=== PATIENT | female | born 1950 | race Caucasian/White ===

== ENCOUNTER 2017-10-24 14:04 | Emergency (ER) | payer MEDICARE, OTHER ==
[2015-12-14 15:06] VITALS: Ht 165.1 cm; Wt 72.1 kg
[~2017-10-24] VITALS: Ht 165.1 cm; Wt 72.1 kg
[~2017-10-24 14:04] MED LIST: ACET-2043 PO; AMLO2.5T74 PO; AMOX-559 PO; ATOR20TA65 PO; AVONEX SQ; CALC-18 PO; CEPH-13 PO; CHLO4TAB PO; CHOL200021 PO; CINN1CAP PO; DIPH0.5D12 IM; DOCU100C49 PO; DYA PO; FAMO10TA PO; FISH1200 PO; GABA-549 PO; GINK60TA6 PO; HAWT150C PO; HYDR-2966 PO; HYDR-385 PO; INTE30KI IM; LOR5/325 PO; MAGN100T2 PO; METH-284 PO; METH5TAB87 PO; METXR500 PO; MILK175C PO; MULT1TAB64 PO; OMEP-218 PO; PHEN-460 PO; PNEI IJ; PNEU0.5D3 IM; SELE50TA16 PO; SULF-198 PO; THYROID ACTIVATOR PO; THYROID PO; TRIA1CAP81 PO; VITA-324 PO; VITA1CAP46 PO; VITA200C8 PO; ZINC30CA2 PO; ZINC50TA43 PO; [UNRECOGNIZED DRUG - CODE] PO; [UNRECOGNIZED DRUG - CODE] PO; [UNRECOGNIZED DRUG - CODE] PO
[2017-10-24 14:10] VITALS: BP 155/66
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
--- NOTE | 2017-10-24 14:59 | RADIOLOGY IMAGING REPORT ---
FACILITY: [facility] PATIENT NAME: Jennifer Merrill : 1950 MR: [id number] V: [id number] EXAM DATE: ORDERING PHYSICIAN: TRAV VICTORIA TECHNOLOGIST: Location: [facility] [place] Patient: Jennifer Merrill : 1950 Visit/Account:[id number] Date of Sevice: 10/24/2017 Exam type: SACRUM COCCYX History: Fell on ice, tried to catch herself with left wrist, tailbone pain Comparison: None. Findings: No definite fracture seen involving the sacrum or coccyx. SI joints appear symmetric bilaterally IMPRESSION: 1. No evidence of fracture involving the sacrum or coccyx Report Dictated By: Mable Rossi MD at 10/24/2017 2:53 PM Report E-Signed By: Mable Rossi MD at 10/24/2017 2:54 PM WSN:[email or web address]
--- NOTE | 2017-10-24 15:01 | RADIOLOGY IMAGING REPORT ---
FACILITY: [facility] [place] PATIENT NAME: Jennifer Merrill : 1950 MR: [id number] V: [id number] EXAM DATE: ORDERING PHYSICIAN: TRAV VICTORIA TECHNOLOGIST: Location: [facility] [place] Patient: Jennifer Merrill : 1950 Visit/Account:[id number] Date of Sevice: 10/24/2017 Exam type: LUMBAR SPINE 4 VIEWS History: fall with pain Comparison: None. Findings: There are five nonrib-bearing lumbar-type vertebral bodies present. There is no evidence of acute fr actures or subluxations. There is mild disc space narrowing at L2-3 mild to moderate disc space narr owing L3-4, L5-S1 and moderate disc space narrowing L4-5. There are mild degenerative facet joint ch anges seen throughout the lumbar spine and moderate degenerative facet joint changes at L5-S1. IMPRESSION: 1. Multilevel spondylotic changes lumbar spine most prominent at L4-5 and L5-S1 No evidence of acute fractures or subluxations Report Dictated By: Mable Rossi MD at 10/24/2017 2:54 PM Report E-Signed By: Mable Rossi MD at 10/24/2017 2:57 PM WSN:[email or web address]
--- NOTE | 2017-10-24 15:04 | RADIOLOGY IMAGING REPORT ---
FACILITY: [facility] [place] PATIENT NAME: Jennifer Merrill : 1950 MR: [id number] V: [id number] EXAM DATE: ORDERING PHYSICIAN: TRAV VICTORIA TECHNOLOGIST: Location: [facility] Patient: Jennifer Merrill : 1950 Visit/Account:[id number] Date of Sevice: 10/24/2017 Exam type: WRIST LEFT MIN 3 VIEW History: fall with pain Comparison: None. Findings: There is no evidence of acute fracture dislocation involving the left wrist. A navicular view was no t performed and if a navicular fracture is of clinical concern and additional views recommended. The re are mild degenerative changes at the left radiocarpal joint IMPRESSION: 1. Mild generative changes at the left radiocarpal joint No evidence of acute fracture dislocation however a navicular view was not performed and if a navicul ar fracture is of clinical concern a navicular view is recommended Report Dictated By: Mable Rossi MD at 10/24/2017 2:57 PM Report E-Signed By: Mable Rossi MD at 10/24/2017 2:59 PM WSN:GIO
[2017-10-24] MEDS ORDERED: KET10 PO (15:42)
== END 2017-10-24 15:44 | disposition home or self-care (01) ==
LOC: ER 14:29
DX: S63.502A Unspecified sprain of left wrist, initial encounter (principal); S30.0XXA Contusion of lower back and pelvis, initial encounter; M54.5 Low back pain; W00.0XXA Fall on same level due to ice and snow, initial encounter
CPT/HCPCS: 72120; 72220; 73110; 99283; L3763

== ENCOUNTER → 2017-11-13 | Outpatient (CLI) | payer MEDICARE, OTHER ==
[2015-12-14 15:06] VITALS: BMI 29.9
[~2017-11-13] MED LIST changes: +KET10 PO
[2017-11-13 10:55] LABS: LDL CHOLESTEROL 43 mg/dl
--- NOTE | 2017-11-13 14:39 | RADIOLOGY IMAGING REPORT ---
FACILITY: [facility] [place] PATIENT NAME: Jennifer Merrill : 1950 MR: [id number] V: [id number] EXAM DATE: ORDERING PHYSICIAN: LAURA REYES TECHNOLOGIST: Location: [facility] Patient: Jennifer Merrill : 1950 Visit/Account:[id number] Date of Sevice: 11/13/2017 THYROID HISTORY: thyroid nodule COMPARISON: March 12, 2017 FINDINGS: SIZE: Right lobe: Surgically removed cm Left lobe: 4.6 x 2 x 2.1 cm Isthmus: 2 mm PARENCHYMA: Homogeneous. NODULES: Right lobe: * None discrete. Left lobe: * In the medial left lobe adjacent to the isthmus there is a 1.4 x 0.5 cm slightly heterogeneous nod ule appears relatively unchanged in size. This has been previously biopsied. The other subcentimete r nodules in the left lobe are again noted. Isthmus: * None discrete. VASCULARITY: Within normal limits. ADDITIONAL FINDINGS: None. IMPRESSION: Left-sided thyroid nodules appear relatively unchanged. The largest measures 1.4 centers in diameter and has apparently been previously biopsied. REFERENCE: 2015 [place] [employer] Management Guidelines for Adult Patients with Thyroid Nodules and D ifferentiated Thyroid Cancer: The [place] [employer] Guidelines Task Force on Thyroid Nodul es and Differentiated Thyroid Cancer. SONOGRAPHIC PATTERNS: * Benign: Purely cystic nodules (no solid component); estimated risk of malignancy <1 percent; no bi opsy recommended. * Very Low Suspicion: Spongiform or partially cystic nodules without any of the sonographic features described in low, intermediate, or high suspicion patterns; estimated risk of malignancy <3 percent; consider FNA at > 2 cm (Observation without FNA is also a reasonable option). * Low Suspicion: Isoechoic or hyperechoic solid nodule, or partially cystic nodule with eccentric so lid areas, without microcalcification, irregular margin or ETE (extra-thyroidal extension), or taller than wide shape; estimated risk of malignancy 5-10 percent; recommend FNA at >1.5 cm. * Intermediate Suspicion: Hypoechoic solid nodule with smooth margins without microcalcifications, E TE (extra-thyroidal extension), or taller than wide shape; estimated risk of malignancy 10-20 percent ; recommend FNA at > 1 cm. * High Suspicion: Solid hypoechoic nodule or solid hypoechoic component of a partially cystic nodule with one or more of the following features: irregular margins (infiltrative, microlobulated), microc alcifications, taller than wide shape, rim calcifications with small extrusive soft tissue component, evidence of ETE (extra-thyroidal extension); estimated risk of malignancy >70-90 percent; recommend FNA at > 1 cm. NOTES: * Although a sonographically suspicious subcentimeter thyroid nodule without evidence of extrathyroi kaylynn extension or sonographically suspicious lymph nodes may be observed with close sonographic follow -up rather than pursuing immediate FNA, patient age and preference may modify decision-making. A > 50% interval increase in nodule volume and/or development of new suspicious sonographic features are felt to be a valid reasons for potential re-aspiration of a nodule previously shown to have benig n FNA cytology. Report Dictated By: Mable Rossi MD at 11/13/2017 2:29 PM Report E-Signed By: Mable Rossi MD at 11/13/2017 2:35 PM WSN:[email or web address]
== END ==
LOC: US 00:21
PROVIDERS: ATTEND Nurse Practitioner Family
DX: E78.5 Hyperlipidemia, unspecified (principal); E04.1 Nontoxic single thyroid nodule
CPT/HCPCS: 76536; 82040; 82247; 82310; 82374; 82435; 82465; 82565; 82947; 83718; 84075; 84132; 84155; 84295; 84450; 84460; 84478; 84520

== ENCOUNTER → 2017-11-13 | Outpatient (CLI) | payer MEDICARE, OTHER ==
[2015-12-14 15:06] VITALS: BMI 29.9
== END ==
LOC: LAB 10:23
PROVIDERS: ATTEND Internal Medicine Endocrinology, Diabetes & Metabolism
DX: E05.00 Thyrotoxicosis with diffuse goiter without thyrotoxic crisis or storm (principal)
CPT/HCPCS: 36415; 84443

== ENCOUNTER → 2017-11-18 | Outpatient (CLI) | payer MEDICARE, OTHER ==
[2015-12-14 15:06] VITALS: BMI 29.9
== END ==
LOC: LAB 14:45
PROVIDERS: ATTEND Internal Medicine Endocrinology, Diabetes & Metabolism
DX: E05.00 Thyrotoxicosis with diffuse goiter without thyrotoxic crisis or storm (principal)
CPT/HCPCS: 36415; 84439; 84481

== ENCOUNTER → 2018-01-07 | Outpatient (CLI) | payer MEDICARE, OTHER ==
[2015-12-14 15:06] VITALS: BMI 29.9
== END ==
LOC: LAB 08:54
PROVIDERS: ATTEND Nurse Practitioner Family
DX: E78.5 Hyperlipidemia, unspecified (principal)
CPT/HCPCS: 36415; 82465; 83718; 84478

== ENCOUNTER → 2018-01-07 | Outpatient (CLI) | payer MEDICARE, OTHER ==
[2015-12-14 15:06] VITALS: BMI 29.9
== END ==
LOC: LAB 08:57
PROVIDERS: ATTEND Internal Medicine Endocrinology, Diabetes & Metabolism
DX: E05.00 Thyrotoxicosis with diffuse goiter without thyrotoxic crisis or storm (principal)
CPT/HCPCS: 36415; 84439; 84443; 84481

== ENCOUNTER → 2018-05-19 | Outpatient (CLI) | payer MEDICARE, OTHER ==
[2015-12-14 15:06] VITALS: BMI 29.9
== END ==
LOC: LAB 12:04
PROVIDERS: ATTEND Internal Medicine Endocrinology, Diabetes & Metabolism
DX: E05.00 Thyrotoxicosis with diffuse goiter without thyrotoxic crisis or storm (principal)
CPT/HCPCS: 36415; 84439; 84443; 84481

== ENCOUNTER → 2018-09-05 | Outpatient (CLI) | payer MEDICARE, OTHER ==
[2015-12-14 15:06] VITALS: BMI 29.9
[~2018-09-05] MED LIST changes: -AMLO2.5T74 PO; +AMLO2.5T76 PO; +METH4TAB66 PO; +METH5TAB87; -MILK175C PO; +MILK175C2 PO; +PNEI IM
[2018-09-05 09:59] LABS: PLATELET COUNT, AUTOMATED 188 K/uL (150-450)
[2018-09-05 10:22] LABS: LDL CHOLESTEROL 43 mg/dl
== END ==
LOC: LAB 09:20
PROVIDERS: ATTEND Nurse Practitioner Family
DX: E05.90 Thyrotoxicosis, unspecified without thyrotoxic crisis or storm (principal); I10 Essential (primary) hypertension
CPT/HCPCS: 36415; 82040; 82247; 82310; 82374; 82435; 82465; 82565; 82728; 82947; 83540; 83550; 83718; 84075; 84132; 84155; 84295; 84450; 84460; 84478; 84520; 85025; 85045

== ENCOUNTER → 2018-09-07 | Outpatient (CLI) | payer MEDICARE, OTHER ==
[2015-12-14 15:06] VITALS: BMI 29.9
[~2018-09-07] MED LIST changes: +FERR-53 PO
== END ==
LOC: LAB 07:23
PROVIDERS: ATTEND Nurse Practitioner Family
DX: D64.9 Anemia, unspecified (principal)
CPT/HCPCS: 82274

== ENCOUNTER → 2018-10-01 | Outpatient (CLI) | payer MEDICARE, OTHER ==
[2015-12-14 15:06] VITALS: BMI 29.9
[~2018-10-01] MED LIST changes: -AMLO2.5T76 PO; +AMLO2.5T78 PO; +IBUP-56 PO; +LISI-362 PO
--- NOTE | 2018-10-01 10:13 | RADIOLOGY IMAGING REPORT ---
[place] [facility] [place] NAME[place] Jennifer Merrill : 1950 MR: [id number] V: [id number] EXAM DATE: ORDERING PHYSICIAN: LAURA REYES TECHNOLOGIST: Location: [facility] [place] Patient: Jennifer Merrill : 1950 Visit/Account:[id number] Date of Sevice: 10/01/2018 DEXA Scan Clinical history: Asymptomatic postmenopausal state. Comparison: DEXA scan from 08/03/2015. LUMBAR SPINE: The bone mineral density (BMD) measured from L1-L3 correlates with a Z-score of 1.1 and a T-score of -0.1 which is Normal as defined by the World Health Organization. The corresponding risk of fracture in the lumbar spine is Not increased compared with a young adult reference population. This value h as decrease by 7.6 % since the prior study. More than 5% change is considered significant. HIP: Bone mineral density (BMD) measured in the LEFT total hip region correlates with a Z-score 0.1 and a T-score of -1 which is normal as defined by the World Health Organization. The corresponding risk of fracture in the hip is 2 valarie es increased compared to a young adult reference population. This value has decrease by 9.5 % since t he prior study. More than 5% change is considered significant. T score left femoral neck -0.7 Bone mineral density (BMD) measured in the Femoral Neck region measures 0.938 g/cm?. IMPRESSION: 1. Lumbar spine: Normal. There has been 7.6% decrease in the bone mineral density since the previou s exam. 2. Left Total Hip: Normal. There has been 9.5% decrease in the bone mineral density since the previ ous exam. 3. Femoral Neck: Bone Mineral Density is 0.938 g/cm? The next DEXA scan of this patient should include the following sites: L1-L4 and the left hip. FRAX? WHO Fracture Risk Assessment Tool link: <http://www.shef.ac.uk/FRAX/tool.jsp?locationValue=9> PLEASE NOTE: 1) The World Health Organization defines low BMD as follows: T-score Normal > -1 Osteopenia < -1 and > -2.5 Osteoporosis < -2.5 without fractures Established osteoporosis < -2.5 with fractures 2) In general, you may wish to consider: Diagnosis Treatment Follow-up DEXA Normal BMD Prevention 2-3 years Osteopenia Prevention/therapy 1-2 years Osteoporosis Therapy Yearly 3) Fracture risk estimated from the T-score is more accurate for vertebral fractures (often spontane ous) than for hip fractures. Report Dictated By: Mable Rossi MD at 10/01/2018 10:08 AM Report E-Signed By: Mable Rossi MD at 10/01/2018 10:10 AM WSN:[email or web address]
--- NOTE | 2018-10-02 17:11 | RADIOLOGY IMAGING REPORT ---
FACILITY: [facility] PATIENT NAME: IGOR TRISTAN : [id number] MR: [id number] V: [id number] EXAM DATE: ORDERING PHYSICIAN: LAURA REYES TECHNOLOGIST: Jessica eL PROCEDURE:BILATERAL DIGITAL SCREENING MAMMOGRAM WITH CAD ASSISTED INTERPRETATION & 3D TOMOSYNTHESIS COMPARISON:Prior mammograms 07/02/17, 04/26/16, 01/20/15, 01/19/14, 01/12/13, 01/07/12. INDICATIONS:SCREENING FINDINGS: The breasts are almost entirely fatty. The parenchymal pattern has remained stable allowing for difference in mammographic technique & patient positioning. DIAGNOSTIC CATEGORY 1--NEGATIVE. RECOMMENDATIONS: ROUTINE MAMMOGRAM AND CLINICAL EVALUATION. IMPRESSION: BIRADS 1: Negative. No significant abnormality is seen. Dictated by: Mable Rossi M.D. on 10/01/2018 at 11:38 Transcribed by: GRISELDA on 10/01/2018 at 11:45 Approved by: Mable Rossi M.D. on 10/02/2018 at 17:10 [facility]
== END ==
LOC: MAMO 01:20
PROVIDERS: ATTEND Nurse Practitioner Family
DX: Z12.31 Encounter for screening mammogram for malignant neoplasm of breast (principal); Z78.0 Asymptomatic menopausal state
CPT/HCPCS: 77063; 77067; 77080

== ENCOUNTER 2018-10-06 07:58 | Outpatient (RCR) | payer MEDICARE, OTHER ==
[2015-12-14 15:06] VITALS: Wt 77.8 kg
[2018-09-26 08:12] VITALS: BP 157/80
--- NOTE | 2018-09-26 09:44 | ONCOLOGY CONSULTATION ---
EVENT DATE: September 26, 2018 REFERRING PHYSICIAN Jyoti Bunch APRN, FNP-C REASON FOR CONSULTATION Evaluation and management of iron deficiency anemia in a patient with gastric bypass surgery. HEMATOLOGY HISTORY The patient is a 67-year-old female who had morbid obesity in the past, treated by gastric bypass surgery done in August 2014. Patient has been evaluated by her primary care physician, Jyoti Bunch APRN, FNP-C, for worsening fatigue lately. Patient has baseline fatigue from her multiple sclerosis, which got worse lately, so CBC was done on September 05, 2018, which showed white count 5,000, hemoglobin 9.1, hematocrit 28.8 and platelets 188,000. MCV was 82. Absolute retic was 0.0281. Iron studies showed low iron at 56, TIBC 431 and iron saturation 8.4% but ferritin was low at 5. Patient was prescribed oral iron pills and she was scheduled for GI workup. PAST MEDICAL HISTORY 1. Multiple sclerosis. 2. Anemia. 3. Trigeminal neuralgia. 4. Hyperlipidemia. 5. Osteoarthritis. 6. Increased blood sugar, most probably from her obesity. 7. Plantar fasciitis. 8. Hyperthyroidism. 9. Leaky heart valves, improved with gastric bypass surgery. 10. Hypertension. PAST SURGICAL HISTORY 1. Gastric bypass surgery, August 2014. 2. Hemithyroidectomy in 1989's for thyroid nodule. 3. Total abdominal hysterectomy/bilateral salpingo oophorectomy in s. 4. Tonsillectomy as a child. 5. Removal of redundant skin after her gastric bypass surgery. FAMILY HISTORY Father had some sort of leukemia, most probably CLL. Mother had colon cancer and breast cancer. SOCIAL HISTORY Patient is single with one child. She is retired from [employer]. She has never smoked. She denies any abuse of alcohol or illicit drugs. CURRENT MEDICATIONS 1. Ferrous Sulfate 325 mg twice daily. 2. Methimazole 5 mg once daily. 3. Hydrocodone/acetaminophen 5/325 mg every six hours p.r.n. for pain. 4. Atorvastatin 20 mg daily. 5. Gabapentin 300 mg at bedtime. 6. Milk thistle seed extract 350 mg q a.m. 7. Vitamin E 200 units. 8. Zinc gluconate 50 mg daily. 9. [place] 150 mg capsule 435 mg every morning. 10. Fish Oil 1200 mg every morning. 11. Vitamin B capsule one capsule daily. 12. Calcium carbonate 500 mg every morning. 13. Magnesium citrate 100 mg every morning. 14. Cinnamon Bark/chromium picolinate 1000 mg every morning. 15. Docusate sodium 100 mg every morning. 16. Famotidine 10 mg every morning. 17. Vitamin A, C and E/Lutein and Minerals vision vitamin tablets one tablet every morning. 18. Acetaminophen 500 mg as needed for pain. ALLERGIES No known drug allergies. REVIEW OF SYSTEMS CONSTITUTIONAL: No appetite or weight change. No fever, chills or sweating. No recent infection. HEENT: Ears: No tinnitus or hearing problem. Nose: She has some nasal discharge. Throat: No sore throat or mouth ulcers. Eyes: No diplopia or visual changes. RESPIRATORY: No shortness of breath. No cough, expectoration or hemoptysis. CARDIOVASCULAR: No chest pain, orthopnea, or paroxysmal nocturnal dyspnea (PND). No edema. No palpitations. GASTROINTESTINAL: She has constipation, on stool softeners. GENITOURINARY: Patient has had heavy periods for years, and she has been seen by a supervisor prop making, and she was offered uterine ablation, but the patient refused the procedure. As per patient, she has had heavy periods for a total of seven days every month. MUSCULOSKELETAL: She has right hip pain. NEUROLOGICAL: She has tingling and numbness in the hands and feet from her MS. HEMATOLOGIC/LYMPHATIC: She has weakness and fatigue lately, getting worse. She has baseline fatigue from her multiple sclerosis, which got worse recently. SKIN: No skin rash or lumps. PSYCHIATRIC: No anxiety or depression. PHYSICAL EXAMINATION GENERAL: Looks stable. Well-developed, well-nourished, and in no acute distress. VITAL SIGNS: Blood pressure 157/80, pulse 59 per minute, respirations 16 per minute, temperature 97.3, pulse ox 96% on room air. HEENT: Head: Atraumatic. No sinus tenderness to palpation. Eyes: No icterus or conjunctivitis. Mouth and Throat: No oral thrush or mucositis. NECK: Supple. No cervical or supraclavicular lymphadenopathy. LUNGS: Clear to auscultation and percussion bilaterally. HEART: Regular rate and rhythm. No gallops, murmurs, clicks or rubs. ABDOMEN: Soft and lax. No tenderness. No hepatosplenomegaly. No masses. EXTREMITIES: No cyanosis, clubbing or edema. LYMPHATICS: No peripheral lymphadenopathy. NEUROLOGICAL: Conscious, alert and oriented x3. No focal motor or sensory deficits. PSYCHIATRIC: Mood and affect appear normal. SKIN: No skin rash, bruise or purpuric eruption. ASSESSMENT 1. Iron deficiency anemia, most probably due to her gastric bypass surgery done August 2014. Patient will not get benefit from oral iron supplementation because of her surgery as her surgery bypasses the site of iron absorption, which is duodenum. I am planning to treat her with Injectafer 750 mg intravenously weekly for two weeks and I will see her in 2-1/2 months after that with CBC, iron studies with ferritin to see if there is correction of the anemia and iron deficiency. If the iron is corrected but not the anemia then I will search for other causes of her anemia. Because of her surgery, I am planning to check her vitamin B12 level and folic acid level as folic acid is absorbed from the same site as iron. I will supplement her with any deficient material. Patient is scheduled for GI workup and I told her this is a good idea to have screening colonoscopy at least because she has not had one before. 2. Obesity, status post gastric bypass surgery. 3. Hyperthyroidism, on Methimazole 5 mg daily. Patient is followed by an garment mender, Dr. Yarelis Horton. PLAN 1. Injectafer 750 mg intravenous weekly for two weeks. 2. Check folic acid level and B12 level. 3. Patient to return in 2-1/2 months with CBC and iron studies with ferritin. 4. Consider further evaluation of the anemia if the anemia is not corrected with iron. 5. Patient to contact us for any new concerns or complaints. MISHAD
[2018-09-29 08:28] VITALS: BP 162/81
[2018-09-29] MEDS: LIDOCAINE/SOD BICARB 8.4% SYR ID PRN (08:53)
[2018-09-29] MEDS: NS(*) 0.9% 100 ML BAG 100 ML IVPB PRN (08:54)
[2018-09-29] MEDS: FERRIC CARBOXY 750 MG SDV 750 MG in NS(*) 0.9% 250 ML BAG 250 ML IVP PRN (08:54)
[~2018-10-06 07:58] MED LIST changes: +DEXTROSE 5%(*) 100 ML BAG 100 ML IVPB PRN
[2018-10-06 08:03] VITALS: BP 138/70
[2018-10-06] MEDS ORDERED: FERRIC CARBOXY 750 MG SDV 750 MG in NS(*) 0.9% 250 ML BAG 250 ML IVP ONE (08:20)
[2018-10-06] MEDS: LIDOCAINE/SOD BICARB 8.4% SYR ID PRN (08:29)
[2018-10-06] MEDS: NS(*) 0.9% 100 ML BAG 100 ML IVPB PRN (08:29)
[2018-10-06] MEDS: FERRIC CARBOXY 750 MG SDV 750 MG in NS(*) 0.9% 250 ML BAG 250 ML IVP PRN (08:29)
[2018-10-06 09:20] VITALS: BP 153/83
[2018-10-10] MEDS ORDERED: SUCR1TAB85 PO (12:42)
[2018-10-10] MEDS ORDERED: PANT40TA65 PO (12:42)
[2018-10-14] MEDS ORDERED: LISI20TA29 PO (15:17)
== END 2018-10-27 08:05 | disposition home or self-care (01) ==
LOC: SPU 07:58
PROVIDERS: ATTEND Internal Medicine Hematology
DX: D50.8 Other iron deficiency anemias (principal); Z98.84 Bariatric surgery status; R53.83 Other fatigue; G35 Multiple sclerosis; E66.9 Obesity, unspecified; E05.90 Thyrotoxicosis, unspecified without thyrotoxic crisis or storm
CPT/HCPCS: 36415; 82607; 82746; 96365; G0463; J1439; J7050; 99202

== ENCOUNTER 2018-10-10 00:26 | Day surgery (SDC) | payer MEDICARE, OTHER ==
[2015-12-14 15:06] VITALS: Ht 165.1 cm; Wt 71.7 kg
[~2018-10-10] VITALS: Ht 165.1 cm; Wt 71.7 kg
[~2018-10-10 00:26] MED LIST changes: -DEXTROSE 5%(*) 100 ML BAG 100 ML IVPB PRN
[2018-10-10 08:48] VITALS: BP 147/88
[2018-10-10] MEDS ORDERED: LIDOCAINE/SOD BICARB 8.4% SYR ID ONE (09:05)
[2018-10-10] MEDS ORDERED: NORMOSOL R SOLN(*) 1000 ML BAG 1,000 ML IV PRN (09:05)
[2018-10-10] MEDS ORDERED: KETAMINE HCL 500 MG/10 ML VIAL ONE (10:51)
[2018-10-10 11:19] VITALS: BP 108/67
--- NOTE | 2018-10-10 11:25 | NUR ---
1119-PT ARRIVES TO SD ON CART IN LLAT POSITION.VSS. SBAR REPORT BEDSIDE. WILL CONTINUE TO MONITOR. 1125-PT ROUSES AND BEGINS TO COUGH. BITE BLOCK REMOVED AT THIS TIME
--- NOTE | 2018-10-10 11:30 | NUR ---
1129-pt trialed on room air at this time, given water at this time.
[2018-10-10] MEDS ORDERED: PROPOFOL EMUL(*) 10MG/ML 20 ML 60 ML ONE (11:34)
--- NOTE | 2018-10-10 11:40 | Short(Outpt) Discharge Summary ---
Discharge Summary Reason for Hosp/Final Diag: (1) IRON DEFICIENCY ANEMIA, UNSPECIFIED Hospital Course & Plan: pt presented for esophagastrojejunoscopy. she tolerated the procedures well and there were no complications. path pending. pt will be discharged home when criteria met. Departure Discharge to: Home Discharge Instructions Home Meds Active Scripts Lisinopril (LISINOPRIL) 10 Mg Tablet, 1 TAB PO QDAY, #30 TAB Prov:LAURA REYES APRNP-C 09/30/18 Hydrocodone Bit/Acetaminophen (HYDROCODON-ACETAMINOPHEN 5-325) 1 Each Tablet, 1 EACH PO Q6H PRN for PAIN, #30 TAB 0 Refills Prov:LAURA REYES APRNP-C 09/05/18 Atorvastatin Calcium (ATORVASTATIN CALCIUM) 20 Mg Tablet, 1 TAB PO DAILY, #90 TAB 1 Refill Prov:LAURA REYES APRNP-C 08/29/18 Gabapentin (GABAPENTIN) 300 Mg Capsule, 1 CAP PO HS, #90 CAPSULE 1 Refill Prov:LAURA REYES APRN [facility] 08/29/18 Reported Medications Ibuprofen (IBUPROFEN) 200 Mg Tablet, 1 TAB PO PRN, TAB 10/01/18 Methimazole (METHIMAZOLE) 5 Mg Tablet 09/05/18 Milk Thistle Seed Extract (MILK THISTLE) 175 Mg Capsule, 350 MG PO QAM, CAPSULE 12/06/15 Vitamin E (Dl,Tocopheryl Acet) (VITAMIN E) 200 Unit Capsule, PO QAM, CAPSULE 12/06/15 Zinc Gluconate (ZINC) 50 Mg Tablet, 25 MG PO QAM 12/06/15 Gibbs (HAWTHORN) 150 Mg Capsule, 435 MG PO QAM, CAPSULE 12/06/15 Fish Oil/Borage/Flax/Om3,6,9#1 ([place] 3-6-9 1,200 mg Softgel) 1,200 Mg Capsule, 1080 MG PO QAM 12/06/15 Vitamin B Complex (VITAMIN B COMPLEX) 1 Each Capsule, 1 EACH PO QAM, CAPSULE 12/06/15 Calcium Carbonate (CALCIUM) 500 Mg Tab.chew, 300 MG PO QAM, TAB.CHEW 12/06/15 Magnesium Citrate (MAGNESIUM CITRATE) 100 Mg Tablet, 1 TAB PO QAM 12/06/15 Cinnamon Bark/Chromium Picolin (CINNAMON PLUS CHROMIUM CAPSULE) 1 Each Capsule, 1000 MG PO QAM, CAPSULE 12/06/15 Docusate Sodium (STOOL SOFTENER) 100 Mg Capsule, 100 MG PO QAM, CAPSULE 12/06/15 Famotidine (ACID SLOT SERVICE SPECIALIST) 10 Mg Tablet, PO QAM EQUATE BRAND- DRUG NAME IS UNKNOWN 12/06/15 Vit A,C & E/Lutein/Minerals (VISION VITAMINS TABLET) 1 Each Tablet, 1 EACH PO QAM 12/06/15 Diet: Regular Activity: As Tolerated Special Instructions: we will call you in 7-10 days with biopsy results. REYNA ROBLES Oct 10, 2018 11:40
[2018-10-10 11:45] VITALS: BP 147/84
[2018-10-10 11:56] VITALS: BP_SYST 141; BP_SYST 162; BP_DIAS 83; BP_DIAS 97
--- NOTE | 2018-10-10 12:18 | NUR ---
1210-PT HAS CHANGED CLOTHES AND REPORTS READY TO GO. PT GIVEN VERBAL AND WRITTEN DISCHARGE INSTRUCTIONS.VSS. PT IV DCD AT THIS TIME 1215-PT ESCORTED OUT AT THIS TIME. MEETS DRISSE BENJAMIN IN THE WR. PT AND FRIEND DENY ANY FURTHER QUESTIONS OR CONCERNS. PT REFUSED WC FOR RIDE OUT. VOIDS BEFORE DISCHARGE
[2018-10-10] MEDS ORDERED: SUCR1TAB85 PO (12:42)
[2018-10-10] MEDS ORDERED: PANT40TA65 PO (12:42)
== END 2018-10-10 12:15 | disposition home or self-care (01) ==
LOC: OR 00:26
PROVIDERS: ATTEND Surgery
DX: K25.9 Gastric ulcer, unspecified as acute or chronic, without hemorrhage or perforation (principal); K57.90 Diverticulosis of intestine, part unspecified, without perforation or abscess without bleeding; K29.50 Unspecified chronic gastritis without bleeding; D12.5 Benign neoplasm of sigmoid colon
CPT/HCPCS: 00813; 43239; 45380; 87077; 88305; J2704; J3490

== ENCOUNTER → 2018-10-30 | Outpatient (CLI) | payer MEDICARE, OTHER ==
[2015-12-14 15:06] VITALS: BMI 29.9
[~2018-10-30] MED LIST changes: +HYDR12.561 PO; +LISI-374 PO; +LISI20TA29 PO; +PANT40TA65 PO; +SUCR1TAB85 PO
== END ==
LOC: LAB 08:36
PROVIDERS: ATTEND Nurse Practitioner Family
DX: I10 Essential (primary) hypertension (principal)
CPT/HCPCS: 36415; 82310; 82374; 82435; 82565; 82947; 84132; 84295; 84520

== ENCOUNTER → 2018-11-17 | Outpatient (CLI) | payer MEDICARE, OTHER ==
[2015-12-14 15:06] VITALS: BMI 29.9
[~2018-11-17] MED LIST changes: +ACET500T68 PO; +ATOR10TA65 PO
[2018-11-17 10:36] LABS: PLATELET COUNT, AUTOMATED 164 K/uL (150-450)
[2018-11-17 10:53] LABS: LDL CHOLESTEROL 29 mg/dl
== END ==
LOC: LAB 10:01
PROVIDERS: ATTEND Nurse Practitioner Family
DX: E78.5 Hyperlipidemia, unspecified (principal); D50.9 Iron deficiency anemia, unspecified
CPT/HCPCS: 36415; 82040; 82247; 82310; 82374; 82435; 82465; 82565; 82728; 82947; 83540; 83550; 83718; 84075; 84132; 84155; 84295; 84450; 84460; 84478; 84520; 85025

== ENCOUNTER → 2018-12-23 | Outpatient (CLI) | payer MEDICARE, OTHER ==
[2015-12-14 15:06] VITALS: BMI 29.9
== END ==
LOC: LAB 16:19
PROVIDERS: ATTEND Internal Medicine Endocrinology, Diabetes & Metabolism
DX: E05.00 Thyrotoxicosis with diffuse goiter without thyrotoxic crisis or storm (principal)
CPT/HCPCS: 36415; 84439; 84443; 84481

== ENCOUNTER → 2019-02-26 | Outpatient (CLI) | payer MEDICARE, OTHER ==
[2015-12-14 15:06] VITALS: BMI 29.9
[~2019-02-26] MED LIST changes: +BENZ200C15 PO; -DIPH0.5D12 IM; +DIPH0.5S2 IM; +FLUT16SP19 NS
[2019-02-26 11:24] LABS: LDL CHOLESTEROL 45 mg/dl
--- NOTE | 2019-02-26 13:40 | RADIOLOGY IMAGING REPORT ---
FACILITY: [facility] [place] PATIENT NAME: Jennifer Merrill : 1950 MR: [id number] V: [id number] EXAM DATE: ORDERING PHYSICIAN: LAURA REYES TECHNOLOGIST: Location: [facility] [place] Patient: Jennifer Merrill : 1950 Visit/Account:[id number] Date of Sevice: 02/26/2019 THYROID HISTORY: thyroid nodule COMPARISON: There for 2017 FINDINGS: SIZE: Right lobe: Surgically removed cm Left lobe: 5.5 x 2.4 x 2.2 cm Isthmus: 2.3 mm PARENCHYMA: Homogeneous. NODULES: * Left lobe: * In the superior left lobe there is an 8 mm well-circumscribed partially cystic partially solid nod ule. * In the mid left lobe there is a 1.4 cm well-circumscribed partially cystic partially solid nodul e. This appears relatively unchanged * In the inferior left lobe there is a 7 mm well-circumscribed hypoechoic nodule Isthmus: * None discrete. VASCULARITY: Within normal limits. ADDITIONAL FINDINGS: None. IMPRESSION: Left-sided thyroid nodules appear stable when compared the prior examination. The largest measures 1 .4 cm in diameter REFERENCE: 2015 [place] [employer] Management Guidelines for Adult Patients with Thyroid Nodules and D ifferentiated Thyroid Cancer: The [place] [employer] Guidelines Task Force on Thyroid Nodul es and Differentiated Thyroid Cancer. SONOGRAPHIC PATTERNS: * Benign: Purely cystic nodules (no solid component); estimated risk of malignancy <1 percent; no bi opsy recommended. * Very Low Suspicion: Spongiform or partially cystic nodules without any of the sonographic features described in low, intermediate, or high suspicion patterns; estimated risk of malignancy <3 percent; consider FNA at > 2 cm (Observation without FNA is also a reasonable option). * Low Suspicion: Isoechoic or hyperechoic solid nodule, or partially cystic nodule with eccentric so lid areas, without microcalcification, irregular margin or ETE (extra-thyroidal extension), or taller than wide shape; estimated risk of malignancy 5-10 percent; recommend FNA at >1.5 cm. * Intermediate Suspicion: Hypoechoic solid nodule with smooth margins without microcalcifications, E TE (extra-thyroidal extension), or taller than wide shape; estimated risk of malignancy 10-20 percent ; recommend FNA at > 1 cm. * High Suspicion: Solid hypoechoic nodule or solid hypoechoic component of a partially cystic nodule with one or more of the following features: irregular margins (infiltrative, microlobulated), microc alcifications, taller than wide shape, rim calcifications with small extrusive soft tissue component, evidence of ETE (extra-thyroidal extension); estimated risk of malignancy >70-90 percent; recommend FNA at > 1 cm. NOTES: * Although a sonographically suspicious subcentimeter thyroid nodule without evidence of extrathyroi kaylynn extension or sonographically suspicious lymph nodes may be observed with close sonographic follow -up rather than pursuing immediate FNA, patient age and preference may modify decision-making. A > 50% interval increase in nodule volume and/or development of new suspicious sonographic features are felt to be a valid reasons for potential re-aspiration of a nodule previously shown to have benig n FNA cytology. Report Dictated By: Mable Rossi MD at 02/26/2019 1:31 PM Report E-Signed By: Mable Rossi MD at 02/26/2019 1:35 PM WSN:GIO
== END ==
LOC: US 01:12
PROVIDERS: ATTEND Nurse Practitioner Family
DX: E04.1 Nontoxic single thyroid nodule (principal)
CPT/HCPCS: 76536; 82040; 82247; 82310; 82374; 82435; 82465; 82565; 82947; 83718; 84075; 84132; 84155; 84295; 84450; 84460; 84478; 84520

== ENCOUNTER → 2019-02-26 | Outpatient (CLI) | payer MEDICARE, OTHER ==
[2015-12-14 15:06] VITALS: BMI 29.9
== END ==
LOC: LAB 09:27
PROVIDERS: ATTEND Internal Medicine Endocrinology, Diabetes & Metabolism
DX: E05.00 Thyrotoxicosis with diffuse goiter without thyrotoxic crisis or storm (principal)
CPT/HCPCS: 36415; 84439; 84443; 84481

== ENCOUNTER 2019-03-13 09:00 | Outpatient (RCR) | payer MEDICARE, OTHER ==
[2015-12-14 15:06] VITALS: Wt 77.9 kg
[2018-12-17 08:40] VITALS: BP 120/77
[2018-12-17 08:47] LABS: PLATELET COUNT, AUTOMATED 171 K/uL (150-450)
[2018-12-19 10:07] VITALS: BP 113/70
--- NOTE | 2018-12-19 22:19 | EL-TARABILY ONCOLOGY NOTE ---
EVENT DATE: December 19, 2018 DIAGNOSES 1. Iron deficiency anemia due to malabsorption from gastric bypass surgery. 2. Hyperthyroidism. CHIEF COMPLAINT Patient is here today for followup of her iron deficiency anemia. HEMATOLOGY HISTORY The patient is a 68-year-old female who had morbid obesity in the past, treated by gastric bypass surgery done in August 2014. Patient has been evaluated by her primary care physician, Jyoti Bunch APRN, [employer], for worsening fatigue lately. Patient has baseline fatigue from her multiple sclerosis, which got worse lately, so CBC was done on September 05, 2018, which showed white count 5000, hemoglobin 9.1, hematocrit 28.8, and platelets 188,000. MCV was 82. Absolute retic was 0.0281. Iron studies showed low iron at 56, TIBC 431, and iron saturation 8.4%, but ferritin was low at 5. Patient was prescribed oral iron pills, and she was scheduled for GI workup. HISTORY OF PRESENT ILLNESS Patient is here today for followup of her iron deficiency anemia due to malabsorption from her gastric bypass surgery. She is complaining currently of cough with expectoration. She has also pain in the right hip. She has tingling and numbness in her body from her multiple sclerosis. She has some fatigue lately because of the lack of sleep after of her mother, but generally speaking, her fatigue improved a lot after the iron infusion. PAST MEDICAL HISTORY 1. Multiple sclerosis. 2. Anemia. 3. Trigeminal neuralgia. 4. Hyperlipidemia. 5. Osteoarthritis. 6. Increased blood sugar, most probably from her obesity. 7. Plantar fasciitis. 8. Hyperthyroidism. 9. Leaky heart valves, improved with gastric bypass surgery. 10. Hypertension. PAST SURGICAL HISTORY 1. Gastric bypass surgery, August 2014. 2. Hemithyroidectomy in for thyroid nodule. 3. Total abdominal hysterectomy/bilateral salpingo oophorectomy in . 4. Tonsillectomy as a child. 5. Removal of redundant skin after her gastric bypass surgery. FAMILY HISTORY Father had some sort of leukemia, most probably CLL. Mother had colon cancer and breast cancer. SOCIAL HISTORY Patient is single with one child. She is retired from [employer]. She has never smoked. She denies any abuse of alcohol or illicit drugs. CURRENT MEDICATIONS 1. Ferrous sulfate 325 mg twice daily. 2. Methimazole 5 mg once daily. 3. Hydrocodone/acetaminophen 5/325 mg every six hours p.r.n. for pain. 4. Atorvastatin 20 mg daily. 5. Gabapentin 300 mg at bedtime. 6. Milk thistle seed extract 350 mg q.a.m. 7. Vitamin E 200 units. 8. Zinc gluconate 50 mg daily. 9. [place] 150 mg capsule 435 mg every morning. 10. Fish Oil 1200 mg every morning. 11. Vitamin B capsule one capsule daily. 12. Calcium carbonate 500 mg every morning. 13. Magnesium citrate 100 mg every morning. 14. Cinnamon bark/chromium picolinate 1000 mg every morning. 15. Docusate sodium 100 mg every morning. 16. Famotidine 10 mg every morning. 17. Vitamin A, C, and E, lutein, and minerals vision vitamin tablets one tablet every morning. 18. Acetaminophen 500 mg as needed for pain. ALLERGIES No known drug allergies. REVIEW OF SYSTEMS CONSTITUTIONAL: No appetite or weight change. No fever, chills, or sweating. No recent infection. HEENT: Ears: No tinnitus or hearing problem. Nose: No nasal discharge or epistaxis. Throat: No sore throat or mouth ulcers. Eyes: No diplopia or visual changes. RESPIRATORY: No shortness of breath. She has cough with expectoration. No hemoptysis. CARDIOVASCULAR: No chest pain, orthopnea, or paroxysmal nocturnal dyspnea (PND). No edema. No palpitations. GASTROINTESTINAL: No nausea or vomiting. No diarrhea or constipation. No change in bowel movements. No heartburn or swallowing difficulties. No abdominal pain. No jaundice. No hematemesis, melena, or rectal bleeding. GENITOURINARY: No hematuria or dysuria. MUSCULOSKELETAL: She has pain in the right hip. NEUROLOGIC: She has some tingling and numbness from her MS. No headaches or convulsions. HEMATOLOGIC/LYMPHATIC: No bleeding or easy bruising. No weakness. She has some fatigue lately due to lack of sleep. No enlarged lymph nodes. SKIN: No skin rash or lumps. PSYCHIATRIC: No anxiety or depression. PHYSICAL EXAMINATION GENERAL: Looks stable. Well developed, well nourished, and in no acute distress. VITAL SIGNS: Blood pressure 113/70, pulse 62 per minute, respirations 16 per minute, temperature 97.8, pulse ox 97% on room air. HEENT: Head: Atraumatic. No sinus tenderness to palpation. Eyes: No icterus or conjunctivitis. Mouth and Throat: No oral thrush or mucositis. NECK: Supple. No cervical or supraclavicular lymphadenopathy. LUNGS: Clear to auscultation and percussion bilaterally. HEART: Regular rate and rhythm. No gallops, murmurs, clicks, or rubs. ABDOMEN: Soft and lax. No tenderness. No hepatosplenomegaly. No masses. EXTREMITIES: No cyanosis, clubbing, or edema. LYMPHATICS: No peripheral lymphadenopathy. NEUROLOGIC: Conscious, alert, and oriented times three. No focal motor or sensory deficits. PSYCHIATRIC: Mood and affect appear normal. SKIN: No skin rash, bruise, or purpuric eruption. DIAGNOSTIC DATA CBC showed white count 5.4, hemoglobin 13.9, hematocrit 42.9, platelets 171,000. B12 level was normal at 1241. Folate level was more than 22.3. Serum iron was 188, TIBC was 290, iron saturation 64.8%, and ferritin levels 258. ASSESSMENT 1. Iron deficiency anemia due to malabsorption from gastric bypass surgery done August 2014. Patient received two infusions of Injectafer recently with normalization of her iron studies. Her hemoglobin also improved from 9.1 g/dL to 13.9 g/dL. Patient is doing very well after the iron infusions. I am planning to continue followup. I will see her again in three months with CBC and iron studies with ferritin, and whenever her iron studies are low, I am planning to infuse her again with Injectafer. Patient is agreeable with the plan of management. 2. Obesity, status post gastric bypass surgery. 3. Hyperthyroidism, on methimazole 5 mg daily. Patient is followed by her guideman, Dr. Yarelis Horton. PLAN 1. Continue followup. 2. Patient to return in three months with CBC, iron studies with ferritin. 3. Patient to contact us for any new concerns or complaints. [facility]
[2019-03-10 08:19] VITALS: BP 114/60
[2019-03-10 08:33] LABS: PLATELET COUNT, AUTOMATED 174 K/uL (150-450)
[2019-03-13 09:08] VITALS: BP 125/67
--- NOTE | 2019-03-13 13:55 | EL-TARABILY ONCOLOGY NOTE ---
EVENT DATE: March 13, 2019 DIAGNOSES 1. Iron deficiency anemia due to malabsorption from gastric bypass surgery. 2. Hyperthyroidism. CHIEF COMPLAINT Patient is here today for followup of her iron deficiency anemia. HEMATOLOGY HISTORY The patient is a 68-year-old female who had morbid obesity in the past, treated by gastric bypass surgery done in August 2014. Patient has been evaluated by her primary care physician, Jyoti Bunch APRN, FNP-[place], for worsening fatigue lately. Patient has baseline fatigue from her multiple sclerosis, which got worse lately, so CBC was done on September 05, 2018, which showed white count 5000, hemoglobin 9.1, hematocrit 28.8, and platelets 188,000. MCV was 82. Absolute retic was 0.0281. Iron studies showed low iron at 56, TIBC 431, and iron saturation 8.4%, but ferritin was low at 5. Patient was prescribed oral iron pills, and she was scheduled for GI workup. HISTORY OF PRESENT ILLNESS Patient is here today for followup of her iron deficiency anemia due to iron malabsorption from gastric bypass surgery. Patient is doing fine currently except having some occasional night sweats. She has also some dry cough from allergies. She has pain in her right hip and she is weak, tired and fatigued. PAST MEDICAL HISTORY 1. Multiple sclerosis. 2. Anemia. 3. Trigeminal neuralgia. 4. Hyperlipidemia. 5. Osteoarthritis. 6. Increased blood sugar, most probably from her obesity. 7. Plantar fasciitis. 8. Hyperthyroidism. 9. Leaky heart valves, improved with gastric bypass surgery. 10. Hypertension. PAST SURGICAL HISTORY 1. Gastric bypass surgery, August 2014. 2. Hemithyroidectomy in for thyroid nodule. 3. Total abdominal hysterectomy/bilateral salpingo oophorectomy in s. 4. Tonsillectomy as a child. 5. Removal of redundant skin after her gastric bypass surgery. FAMILY HISTORY Father had some sort of leukemia, most probably CLL. Mother had colon cancer and breast cancer. SOCIAL HISTORY Patient is single with one child. She is retired from [employer]. She has never smoked. She denies any abuse of alcohol or illicit drugs. CURRENT MEDICATIONS 1. Methimazole 5 mg once daily. 2. Hydrocodone/acetaminophen 5/325 mg every six hours p.r.n. for pain. 3. Atorvastatin 20 mg daily. 4. Gabapentin 300 mg at bedtime. 5. Milk thistle seed extract 350 mg q.a.m. 6. Vitamin E 200 units. 7. Zinc gluconate 50 mg daily. 8. [place] 150 mg capsule 435 mg every morning. 9. Fish Oil 1200 mg every morning. 10. Vitamin B capsule one capsule daily. 11. Calcium carbonate 500 mg every morning. 12. Magnesium citrate 100 mg every morning. 13. Cinnamon bark/chromium picolinate 1000 mg every morning. 14. Docusate sodium 100 mg every morning. 15. Famotidine 10 mg every morning. 16. Vitamin A, C, and E, lutein, and minerals vision vitamin tablets one tablet every morning. 17. Acetaminophen 500 mg as needed for pain. ALLERGIES No known drug allergies. REVIEW OF SYSTEMS CONSTITUTIONAL: Patient has occasional sweating. HEENT: Ears: No tinnitus or hearing problem. Nose: No nasal discharge or epistaxis. Throat: No sore throat or mouth ulcers. Eyes: No diplopia or visual changes. RESPIRATORY: She has dry cough from allergies. CARDIOVASCULAR: No chest pain, orthopnea, or paroxysmal nocturnal dyspnea (PND). No edema. No palpitations. GASTROINTESTINAL: No nausea or vomiting. No diarrhea or constipation. No change in bowel movements. No heartburn or swallowing difficulties. No abdominal pain. No jaundice. No hematemesis, melena, or rectal bleeding. GENITOURINARY: No hematuria or dysuria. MUSCULOSKELETAL: She has pain in the right hip. NEUROLOGIC: She has some tingling and numbness from her MS. No headaches or convulsions. HEMATOLOGIC/LYMPHATIC: She has some fatigue. SKIN: No skin rash or lumps. PSYCHIATRIC: No anxiety or depression. PHYSICAL EXAMINATION GENERAL: Looks stable. Well developed, well nourished, and in no acute distress. VITAL SIGNS: Blood pressure 125/67, pulse 52 per minute, respirations 16 per minute, temperature 97, pulse ox 94% on room air. HEENT: Head: Atraumatic. No sinus tenderness to palpation. Eyes: No icterus or conjunctivitis. Mouth and Throat: No oral thrush or mucositis. NECK: Supple. No cervical or supraclavicular lymphadenopathy. LUNGS: Clear to auscultation and percussion bilaterally. HEART: Regular rate and rhythm. No gallops, murmurs, clicks, or rubs. ABDOMEN: Soft and lax. No tenderness. No hepatosplenomegaly. No masses. EXTREMITIES: No cyanosis, clubbing, or edema. LYMPHATICS: No peripheral lymphadenopathy. NEUROLOGIC: Conscious, alert, and oriented times three. No focal motor or sensory deficits. PSYCHIATRIC: Mood and affect appear normal. SKIN: No skin rash, bruise, or purpuric eruption. DIAGNOSTIC DATA CBC showed white count 4,000, hemoglobin 12.5, hematocrit 36.5, platelets 174,000. Serum iron is 146, TIBC 292, iron percentage if 50%, ferritin 158. Chem panel totally normal except AST 42 and ALT 66. ASSESSMENT 1. Iron deficiency anemia due to malabsorption from gastric bypass surgery done August 2014. Patient received two infusions of Injectafer with normalization of her iron studies. Her hemoglobin currently is 12.5 and initially it was 9.1. Her iron studies are totally normal. Her ferritin today is 158 and iron saturation 50%. I am planning to continue followup. I will see her again in four months with CBC, iron studies with ferritin at that time. If the patient would develop iron deficiency in the future, she will need Injectafer infusions as oral iron is not working well for her because of her iron malabsorption from gastric bypass study. 2. Obesity, status post gastric bypass surgery. 3. Hyperthyroidism, on methimazole 5 mg daily. Patient is followed by her informatics coordinator, Dr. Yarelis Horton. PLAN 1. Continue followup. 2. Patient to return in four months with CBC, iron studies with ferritin. 3. Patient to contact us for any new concerns or complaints. [facility]
== END 2019-03-16 ==
LOC: ONC 09:00
PROVIDERS: ATTEND Internal Medicine Hematology
DX: D50.9 Iron deficiency anemia, unspecified (principal); E03.9 Hypothyroidism, unspecified; Z79.899 Other long term (current) drug therapy; E66.9 Obesity, unspecified; Z98.84 Bariatric surgery status
CPT/HCPCS: 36415; 82607; 82728; 82746; 83540; 83550; 85025; G0463; 99212

== ENCOUNTER → 2019-04-21 | Outpatient (CLI) | payer MEDICARE, OTHER ==
[2015-12-14 15:06] VITALS: BMI 29.9
[~2019-04-21] MED LIST changes: +MONT10TA PO; +PRED20TA6 PO; +TRIA10.8
== END ==
LOC: LAB 15:38
PROVIDERS: ATTEND Internal Medicine Endocrinology, Diabetes & Metabolism
DX: E05.00 Thyrotoxicosis with diffuse goiter without thyrotoxic crisis or storm (principal)
CPT/HCPCS: 36415; 83519; 84439; 84443; 84481